=== PATIENT | male | born 2000 ===

== ENCOUNTER 2021-02-20 18:18 | Emergency (ER) | payer SELFPAY ==
--- NOTE | 2021-02-20 19:56 | EDM.PDOC ---
ED HPI GENERAL MEDICAL PROBLEM - General Chief Complaint: Respiratory Problem Stated Complaint: COVID SYMPTOMS Time Seen by Provider: 02/20/21 19:48 Source of Information: Reports: Patient History Limitations: Reports: No Limitations - History of Present Illness INITIAL COMMENTS - FREE TEXT/NARRATIVE: 20-year-old male past medical history morbid obesity presents for Covid-like symptoms and known Covid exposure. Patient notes that for the last week he has had nausea, a couple episodes of emesis, diarrhea, sore throat, nonproductive cough. At times he does have some shortness of breath. He does note body aches. He is uncertain about fevers. He notes that his roommate came in yesterday evening and tested positive. He is unvaccinated. - Related Data Allergies Allergy/AdvReac Type Severity Reaction Status Date / Time No Known Allergies Allergy Verified 02/20/21 19:44 Home Meds: Home Meds . [No Known Home Meds] 02/20/21 [History] Social & Family History - Tobacco Use Second Hand Smoke Exposure: No - Caffeine Use Caffeine Use: Reports: None - Recreational Drug Use Recreational Drug Use: No ED ROS GENERAL - Review of Systems Review Of Systems: Comprehensive ROS is negative, except as noted in HPI. ED EXAM, GENERAL - Physical Exam Exam: See Below Exam Limited By: No Limitations General Appearance: Alert, WD/WN, No Apparent Distress Ears: Hearing Grossly Normal Throat/Mouth: Normal Oropharynx, Normal Voice, No Airway Compromise Head: Atraumatic, Normocephalic Respiratory/Chest: No Respiratory Distress, Lungs Clear, Normal Breath Sounds, No Accessory Muscle Use Cardiovascular: Normal Peripheral Pulses, Regular Rate, Rhythm Extremities: Normal Inspection Neurological: Alert, Normal Cognition, Normal Gait Psychiatric: Normal Affect, Normal Mood Skin Exam: Warm, Dry, Intact, Normal Color Course - Vital Signs Last Recorded V/S: Last Vital Signs Temp 98.7 F 02/20/21 19:40 Pulse 99 02/20/21 19:40 Resp 20 02/20/21 19:40 BP 185/84 H 02/20/21 19:40 Pulse Ox 96 02/20/21 19:40 - Orders/Labs/Meds Labs: Laboratory Tests 02/20/21 Range/Units 17:00 Influenza Type A RNA NEGATIVE (NEGATIVE) Influenza Type B RNA NEGATIVE (NEGATIVE) SARS-CoV-2 RNA (ZEN) NEGATIVE (NEGATIVE) - Re-Assessments/Exams Free Text/Narrative Re-Assessment/Exam: 02/20/21 19:56 Patient presents with Covid-like symptoms. Will follow up COVID test and anticipate discharge with Regeneron therapy. 02/20/21 20:20 COVID test is negative; however given symptoms and exposure patient likely does have COVID and is no longer testing positive. Will d/c with return precautions. Will defer Regeneron therapy. Departure - Departure Time of Disposition: 20:20 Disposition: Home, Self-Care 01 Condition: Good Clinical Impression: Bronchitis - Discharge Information Instructions: COVID-19: What to Do If You Are Sick- [facility] (04/27/2020) Forms: ED Department Discharge Additional Instructions: Your Covid test is negative. However given your exposure, you should assume that you likely did have COVID but that you are no longer shedding viral particles and are no longer contagious. If you have difficulty breathing or chest pain you should come back to the emergency department for reassessment. You can take Tylenol and Motrin for control of fevers and body aches. Please isolate so you do not spread the disease to others. The following information is given to patients seen in the emergency department who are being discharged to home. This information is to outline your options for follow-up care. We provide all patients seen in our emergency department with a follow-up referral. The need for follow-up, as well as the timing and circumstances, are variable depending upon the specifics of your emergency department visit. If you don't have a primary care physician on staff, we will provide you with a referral. We always advise you to contact your personal physician following an emergency department visit to inform them of the circumstance of the visit and for follow-up with them and/or the need for any referrals to a consulting specialist. The emergency department will also refer you to a specialist when appropriate. This referral assures that you have the opportunity for follow-up care with a specialist. All of these measure are taken in an effort to provide you with optimal care, which includes your follow-up. Under all circumstances we always encourage you to contact your private physician who remains a resource for coordinating your care. When calling for follow-up care, please make the office aware that this follow-up is from your recent emergency room visit. If for any reason you are refused follow-up, please contact the [facility] at and asked to speak to the emergency department charge nurse. Please follow up with your primary care physician. If you do not have a primary care physician, see below: [facility] [address] [place] [address] [id number] [facility] [address] [place] [id number] [facility] [address] [place] [id number] Sepsis Event Note (ED) - Evaluation Sepsis Screening Result: No Definite Risk - Focused Exam Vital Signs: Vital Signs Temp Pulse Resp BP Pulse Ox 02/20/21 19:40 98.7 F 99 20 185/84 H 96
[2021-02-20 20:18] LABS: CORONAVIRUS COVID-19 NAA NEGATIVE (NEGATIVE); INFLUENZA A NAA NEGATIVE (NEGATIVE); INFLUENZA B NAA NEGATIVE (NEGATIVE)
== END 2021-02-20 20:53 | disposition home or self-care (01) ==
LOC: MW.ED 18:18
DX: J40 Bronchitis, not specified as acute or chronic (principal); Z20.822 Contact with and (suspected) exposure to COVID-19
CPT/HCPCS: 0240U; 99284

== ENCOUNTER 2022-11-16 18:37 | Emergency (ER) | payer SELFPAY | END 2022-11-16 20:15 | disposition left against medical advice (07) | LOC: MW.ED 18:37 | DX: Z53.21 Procedure and treatment not carried out due to patient leaving prior to being seen by health care provider (principal) ==